=== PATIENT | female | born 1945 | race African-American/Black ===

== ENCOUNTER → 2020-12-05 | Outpatient (CLI) | payer OTHER ==
[~2020-12-05] VITALS: Ht 152.4 cm; Wt 88.9 kg
[~2020-12-05] MED LIST: ALEVE220 M1 PO; BACLOFEN 10MG T10 MG PO; FLONASE 0.05%50 MCG NASAL; NORVASC10 MG PO; PROTONIX40 M2 PO; QUINAPRIL HCL40 MG PO; QUININE SULFAT324 MG PO; ZYRTEC10 M5 PO; astepro NASAL
[2020-12-05 10:46] VITALS: BP 166/91
--- NOTE | 2020-12-05 10:47 | NUR ---
Pain Clinic Assessment: 1. History of Osteoarthritis: BACK RIGHT SHOULDER History of Rheumatoid Arthritis: Not Applicable 2. Height: 5 ft. 6 in. 152.4 cm. Weight: 196.0 lb. oz. 88.905 kg. Patient's BMI: 31.7 3. Vital Signs: BP: 166/91 Pulse: 94 Resp: 16 Temp: 02 Sat: 97 ECG Mon: 4. Pain Intensity: 7 5. Fall Risk: Dizziness: N Needs help standing or walking: N Fallen in the last 3 months: N Fall risk comments: 6. Patient on Blood Thinner: None 7. History of Hypertension: Y 8. Opioid Therapy greater than 6 weeks: N Opiate Contract Signed: 9. Risk Assessment Tool Provided: LOW-0 10. Functional Assessment Tool: 56/70 11. Recreational Drug Use: Never Drug Type: Tobacco Use: Former Smoker Tobacco Type: Amount or Packs/day: How Many Years: Alcohol Use: No Frequency: Quant:
== END ==
LOC: PAIN 06:46
PROVIDERS: ATTEND Anesthesiology Pain Medicine
DX: I10 Essential (primary) hypertension (principal); E78.5 Hyperlipidemia, unspecified; E78.00 Pure hypercholesterolemia, unspecified; M79.672 Pain in left foot; K21.9 Gastro-esophageal reflux disease without esophagitis; J30.89 Other allergic rhinitis; I87.2 Venous insufficiency (chronic) (peripheral); M20.42 Other hammer toe(s) (acquired), left foot; M47.817 Spondylosis without myelopathy or radiculopathy, lumbosacral region; M43.16 Spondylolisthesis, lumbar region; M48.061 Spinal stenosis, lumbar region without neurogenic claudication; G62.9 Polyneuropathy, unspecified; Z87.891 Personal history of nicotine dependence; Z79.899 Other long term (current) drug therapy; Z88.0 Allergy status to penicillin; Z88.8 Allergy status to other drugs, medicaments and biological substances; Z90.710 Acquired absence of both cervix and uterus